=== PATIENT | female | born 1980 | race Caucasian/White ===

== ENCOUNTER 2021-07-08 10:41 | Inpatient (IN) | payer OTHER ==
[~2021-07-08] VITALS: Ht 167.6 cm; Wt 59.0 kg
[~2021-07-08 10:41] MED LIST: NOHOMEMEDICATIONS
[2021-07-08 11:04] VITALS: BP 136/95
[2021-07-08 11:46] LABS: HEMATOCRIT 42.1 % (37.0-47.0); HEMOGLOBIN 14.3 gm/dL (12.0-15.0); MCH 31.9 pg (26.0-34.0); MCHC 33.8 g/dL (28.0-37.0); MCV 94.4 fL (80.0-100.0); NUCLEATED RBCS 0 /100WBC; PLATELET COUNT* 226 thou/uL (150-400); RBC 4.47 mil/uL (4.20-5.00); WBC 9.8 thou/uL (4.0-11.0)
[2021-07-08 11:50] LABS: URINE BILIRUBIN NEGATIVE (Negative); URINE BLOOD 1+ (Negative); URINE CLARITY CLEAR; URINE COLOR YELLOW; URINE GLUCOSE-RANDOM NEGATIVE (Negative); URINE KETONES NEGATIVE (Negative); URINE LEUKOCYTES-REFLEX NEGATIVE (Negative); URINE NITRITE-REFLEX NEGATIVE (Negative); URINE PROTEIN NEGATIVE (Negative); URINE SPECIFIC GRAVITY >= 1.030 (1.005-1.030); URINE UROBILINOGEN 0.2 E.U./dl (0.2-1.0)
[2021-07-08 11:57] LABS: AMP/METHAMP Negative (Negative); BARBITURATES Negative (Negative); BENZODIAZEPINES Negative (Negative); COCAINE Negative (Negative); METHADONE Negative (Negative); OPIATES Negative (Negative); PCP Negative (Negative); THC POSITIVE (Negative)
[2021-07-08 11:58] LABS: SQUAMOUS >10 Many /LPF (0-3)
[2021-07-08 11:59] LABS: URINE RBC 0-2 Rare /HPF (0-2); URINE WBC-REFLEX None Seen /HPF (0-5)
[2021-07-08 12:00] LABS: CASTS None Seen /LPF (None Seen); CRYSTALS None Seen /LPF (None Seen); MUCUS 0-3 Light strn/LPF (None Seen)
[2021-07-08 12:08] LABS: ACETAMINOPHEN 2 ug/mL (10-30); ALCOHOL < 10 mg/dL (<10); SALICYLATE < 2.8 mg/dL (2.8-20.0)
[2021-07-08 12:12] LABS: CREATININE 0.7 mg/dL (0.6-1.3); POTASSIUM 4.4 mmol/L (3.5-5.1)
[2021-07-08 12:16] LABS: ALBUMIN 4.5 g/dL (3.4-5.0); TOTAL BILIRUBIN 0.6 mg/dL (<0.1-1.0); TOTAL PROTEIN 7.6 g/dL (6.4-8.2)
[2021-07-08 12:37] LABS: ABSOLUTE LYMPHOCYTES 0.5 thou/uL (0.8-5.3); ABSOLUTE NEUTROPHILS 9.3 thou/uL (1.6-8.1)
[2021-07-08 12:38] LABS: PLATELET ESTIMATE ADEQUATE
--- NOTE | 2021-07-08 13:09 | EKG ---
[place] [address] ELECTROCARDIOGRAM REPORT Name: ZHENG BREWSTER Room: [facility]#: [id number] Admission: 07/08/21 Attend Phys: Discharge: Date of : 78 Date of Service: 07/08/21 1147 Report #: [id number] THIS REPORT FOR: //name// [facility] ED Test Date: 2021-07-08 Test Time: 11:47:04 Pat Name: ZHENG BREWSTER Department: Room: Gender: Cvir Tech: TO : 1980 Requested By: Macarena Lee Order Number: [id number] MD: Lit Rea Measurements Intervals [place] Rate: 66 P: [place]: QRS: 52 QRSD: 101 T: 57 QT: 423 QTc: 444 Interpretive Statements Atrial fibrillation No previous ECG available for comparison Electronically Signed On 07-08-2021 13:08:45 DISC RECORDIST by Lit Rea [email or web address] <ELECTRONICALLY SIGNED> By: Lit Rea MD, [facility] 07/08/21 1308 1147 1147 Lit Rea MD, FACC /EPI
--- NOTE | 2021-07-08 13:09 | EKG ---
[place] [address] ELECTROCARDIOGRAM REPORT Name: ZHENG BREWSTER Room: [facility]#: [id number] Admission: 07/08/21 Attend Phys: Discharge: Date of : [birth year] Date of Service: 07/08/21 1238 Report #: [id number] THIS REPORT FOR: //name// [facility] ED Test Date: 2021-07-08 Test Time: 12:38:39 Pat Name: ZHENG BREWSTER Department: Room: Gender: Accuracy Expert: TO : 1980 Requested By: Macarena Lee Order Number: [id number] MD: Lit Rea Measurements Intervals [place] Rate: 64 P: 12 [place]: 123 QRS: 65 QRSD: 98 T: 55 QT: 435 QTc: 449 Interpretive Statements Sinus arrhythmia Compared to ECG 07/08/2021 11:47:04 Atrial fibrillation no longer present Electronically Signed On 07-08-2021 13:09:01 [employer] SYSTEM ADMINISTRATOR by Lit Rea [email or web address] <ELECTRONICALLY SIGNED> By: Lit Rea MD, [facility] 07/08/21 1309 1238 1238 Lit Rea MD, [facility] /EPI
[2021-07-08 13:16] LABS: APTT 24.2 Seconds (25.0-31.3); PROTIME 9.8 Seconds (9.20-11.50)
[2021-07-08 15:09] VITALS: BP 104/68
[2021-07-08 15:27] LABS: ABSOLUTE LYMPHOCYTES 0.5 thou/uL (0.8-5.3); ABSOLUTE MONOCYTES 0.2 thou/uL (0.0-1.2); ABSOLUTE NEUTROPHILS 5.4 thou/uL (1.6-8.1); BASOPHILS 0.1 %; EOSINOPHILS 0.2 %; HEMATOCRIT 35.9 % (37.0-47.0); LYMPHOCYTES 8.9 %; MCH 32.7 pg (26.0-34.0); MCV 96.2 fL (80.0-100.0); MONOCYTES 2.9 %; NUCLEATED RBCS 0 /100WBC; PLATELET COUNT* 190 thou/uL (150-400); POLYS 87.9 %; RBC 3.73 mil/uL (4.20-5.00); RDW-CV 12.8 % (10.5-14.5); WBC 6.1 thou/uL (4.0-11.0)
[2021-07-08 15:36] LABS: HEMOGLOBIN 12.2 gm/dL (12.0-15.0)
[2021-07-08 20:00] VITALS: BP 139/95
== END 2021-07-09 | disposition home or self-care (01) | DRG 372 ==
LOC: M.ERS 10:41 → M.TBA-ER 13:40 → M.2W 16:20
PROVIDERS: Student in an Organized Health Care Education/Training Program; ADMIT Internal Medicine; ATTEND Internal Medicine
DX: A04.9 Bacterial intestinal infection, unspecified (principal); K92.2 Gastrointestinal hemorrhage, unspecified; Z20.822 Contact with and (suspected) exposure to COVID-19; E86.0 Dehydration; K59.00 Constipation, unspecified